=== PATIENT | female | born 1975 | race Two or more races ===

== ENCOUNTER 2020-06-12 19:05 | Emergency (ER) | payer OTHER ==
[~2020-06-12] VITALS: Ht 154.9 cm; Wt 65.3 kg
== END 2020-06-13 00:48 | disposition home or self-care (01) ==
LOC: ER 19:05
DX: S10.83XA Contusion of other specified part of neck, initial encounter (principal); W18.39XA Other fall on same level, initial encounter; Y93.89 Activity, other specified; Y92.091 Bathroom in other non-institutional residence as the place of occurrence of the external cause; Y99.8 Other external cause status

== ENCOUNTER 2022-02-09 09:52 | Outpatient (CLI) | payer OTHER | END 2022-02-09 15:12 | disposition home or self-care (01) | LOC: RAD 09:52 | DX: M41.9 Scoliosis, unspecified (principal) ==